=== PATIENT | male | born 1995 | race Two or more races ===

== ENCOUNTER → 2017-11-23 | Outpatient (CLI) | payer OTHER | END | disposition home or self-care (01) | LOC: PPH VACUNA 11:25 | DX: Z23 Encounter for immunization (principal) ==

== ENCOUNTER 2020-11-11 09:42 | Outpatient (CLI) | payer OTHER | END 2020-11-11 22:00 | disposition home or self-care (01) | LOC: PPH VACUNA 09:42 | DX: Z23 Encounter for immunization (principal) ==

== ENCOUNTER 2021-09-15 08:00 | Outpatient (CLI) | payer OTHER | END 2021-09-15 08:30 | disposition home or self-care (01) | LOC: PPH VACUNA 08:00 | PROVIDERS: ATTEND Emergency Medicine Pediatric Emergency Medicine | DX: Z23 Encounter for immunization (principal) ==